=== PATIENT | male | born 1950 | race Caucasian/White ===

== ENCOUNTER 2022-09-25 13:14 | Outpatient (CLI) | payer MEDICARE, SELFPAY ==
--- NOTE | 2022-09-25 13:35 | ECHO_ITS ---
Patient Info Name: Renny Desai Age: 72 years : 1950 Gender: Male Ht: 69 in Wt: 140 lbs BSA: 1.75 m2 HR: 107 bpm BP: 199 / 112 mmHg Heart Rhythm: Atrial Fibrillation Technical Quality: Good Exam Date: 09/25/2022 1:49 PM Exam Location: [facility] Patient Status: Outpatient Admit Date: 09/25/2022 Staff Ordering Physician: Almas Méndez APRN [employer] Systems Analyst Consultant: Nely Altamirano RDCS Attending Provider: Almas Méndez APRN Referring Physician: Dev ALTAMIRANO; Exam Type: CA echo doppler color flow Study Info Indications I48.1 - Persistent atrial fibrillation Complete two-dimensional, color flow and Doppler transthoracic echocardiogram is performed. Summary 1. Complete two-dimensional, color flow and Doppler transthoracic echocardiogram is performed. 2. Mild left ventricular enlargement with mildly reduced systolic contractility. 3. Dilated left atrium. 4. 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 5. Atrial fibrillation. 6. Trivial aortic regurgitation+. Left Ventricle Left ventricular chamber dimension is mildly enlarged. Left ventricular systolic function is mildly reduced, estimated at 40-45%. The left ventricular diastolic function is indeterminate. Right Ventricle Right ventricular chamber dimension is normal. Left Atria Left atrial chamber dimension is moderately enlarged. Right Atria Right atrial chamber dimension is normal. Aortic Valve The aortic valve is trileaflet. There is trace aortic valve regurgitation. Pulmonic Valve The pulmonic valve is normal. There is mild pulmonic regurgitation. Mitral Valve The mitral valve has normal leaflets. There is mild mitral valve regurgitation. Tricuspid Valve The tricuspid valve leaflets are normal. There is trace tricuspid valve regurgitation. Pericardium/Pleural The pericardium appears normal. Aorta The aortic root size at the sinus of Valsalva is normal. Left Ventricular Outflow Tract Name Value Normal LVOT 2D LVOT Diameter 2.0 cm LVOT Doppler LVOT Peak Gradient 5 mmHg LVOT Mean Gradient 3 mmHg LVOT VTI 21 cm LVOT VTI/AV VTI Ratio 1.2 LVOT Stroke Volume 68 ml LVOT CO 16.7 l/min LVOT CI 9.5 l/min/m2 Pulmonic Valve Name Value Normal PV Doppler PV Peak Gradient 5 mmHg Mitral Valve Name Value Normal MV Doppler MV Decel Barton
== END 2022-09-25 13:15 | disposition home or self-care (01) ==
LOC: ANHCARD 13:15
PROVIDERS: PCP Internal Medicine; Visit Provider Nurse Practitioner
DX: I48.91 Unspecified atrial fibrillation (principal)
CPT/HCPCS: 93306